=== PATIENT | female | born 1985 | race Caucasian/White ===

== ENCOUNTER 2017-07-06 13:35 | Emergency (ER) | payer BC, OTHER ==
[~2017-07-06] VITALS: Ht 165.1 cm; Wt 55.6 kg
[~2017-07-06 13:35] MED LIST: AZIT250T3 PO; IBUP1TAB7 PO; IPRA0.06 EACH NARE
[2017-07-06 13:39] VITALS: BP 127/77; PULSE 88; RESP 16; TEMP 98.4; O2SAT 99
--- NOTE | 2017-07-06 15:36 | PD ---
HPI Chief Complaint: Cold / Flu Symptoms Time Seen by Provider: 15:25 Travel History International Travel<30 days: No Contact w/Intl Traveler<30days: No Traveled to known affect area: No History of Present Illness HPI 32-year-old female presents for evaluation. For 2 days she has had cough, congestion, sore throat. Symptoms are mild. She has had occasional right ear pressure for the past few weeks. She denies any fevers, chills, rash, recent travel. She has no other complaints at this time. PFSH Past Medical History Diminished Hearing: No Genitourinary: Yes (HPV) Immunizations Current: Yes : 2 Para: 2 Miscarriage: 0 : 0 Tubal Ligation: Yes Past Surgical History Section: Yes (X2) Tonsillectomy: Yes Social History Alcohol Use: Yes (OCCAS) Tobacco Use: Yes (1/2 PPD) Substance Use: No Allergies-Medications (Allergen,Severity, Reaction): Coded Allergies: codeine (Unverified Adverse Reaction, Intermediate, Nausea/Vomiting, ) Reported Meds & Prescriptions Reported Meds & Active Scripts Active Review of Systems Except as stated in HPI: all other systems reviewed are Neg Physical Exam Narrative GENERAL: Well-developed well-nourished female in no acute distress SKIN: Warm and dry. HEAD: Atraumatic. Normocephalic. EYES: Pupils equal and round. No scleral icterus. No injection or drainage. ENT: No nasal bleeding or discharge. Mucous membranes pink and moist. NECK: Trachea midline. No JVD. CARDIOVASCULAR: Regular rate and rhythm. No murmur appreciated. RESPIRATORY: No accessory muscle use. Clear to auscultation. Breath sounds equal bilaterally. Data Data Last Documented VS Vital Signs Date Time Temp Pulse Resp B/P (MAP) Pulse Ox O2 Delivery O2 Flow Rate FiO2 07/06/17 15:34 16 07/06/17 13:39 98.4 88 127/77 (94) 99 Orders Orders Influenzae A/B Antigen (07/06/17 15:31) Group A Rapid Strep Screen (07/06/17 15:31) Strep Culture (Group A) (07/06/17 15:50) Ed Discharge Order (07/06/17 16:31) MDM Medical Decision Making Medical Screen Exam Complete: Yes Emergency Medical Condition: Yes Medical Record Reviewed: Yes Differential Diagnosis Bronchitis, pneumonia, pharyngitis, influenza Narrative Course 32-year-old female with 2 days of sore throat, cough and congestion. Physical examination is unremarkable. Rapid strep screen and influenza antigen are performed and are negative. The patient has a viral upper respiratory infection. She is stable for discharge. Diagnosis Primary Impression: Upper respiratory infection, viral Additional Instructions: Stay well-hydrated and well-nourished, get plenty of rest. Return for any emergent medical conditions. Med/Other Pt SpecificInfo: No Change to Meds Disposition: 01 DISCHARGE HOME Condition: Stable Richard Orlando Jul 06, 2017 15:35
== END 2017-07-06 17:25 | disposition home or self-care (01) ==
LOC: PHEFT 13:35
DX: J06.9 Acute upper respiratory infection, unspecified (principal); F17.200 Nicotine dependence, unspecified, uncomplicated
CPT/HCPCS: 87081; 87804; 87880; 99283